=== PATIENT | female | born 1950 | race Caucasian/White ===

== ENCOUNTER 2017-02-06 07:48 | Day surgery (SDC) | payer MEDICARE, BC ==
[2017-02-06] VITALS (10 sets, daily range): BP systolic 95–147; BP diastolic 57–80; PULSE 49–77; TEMP 98.1
[~2017-02-06] VITALS: Ht 160.1 cm; Wt 97.2 kg
[2017-02-06 08:14] LABS: HEMATOCRIT 39.1 % (37.0-47.0); HEMOGLOBIN 12.7 g/dl (12.5-16.0); MEAN CELL VOLUME 88 fl (80.0-100.0); MEAN CORPUSCULAR HEMOGLOBIN 28 pg (27.0-31.0); MEAN CORPUSCULAR HGB CONC 33 g/dl (33.0-37.0); PLATELET COUNT 285 K/mm3 (130-400); RED BLOOD COUNT 4.47 M/mm3 (4.10-5.30); REDCELL DISTRIBUTION WIDTH-CV 13.3 % (11.5-14.5); WHITE BLOOD COUNT 6.2 K/mm3 (4.8-10.8)
[2017-02-06 08:18] LABS: PROTHROMBIN TIME 11.2 SECONDS (9.7-12.8)
[2017-02-06 08:23] LABS: CALCIUM 9.5 mg/dL (8.4-10.2); CREATININE, serum 0.95 mg/dL (0.52-1.25); POTASSIUM 3.7 mmol/L (3.4-5.0)
[2017-02-06] MEDS ORDERED: ASPIRIN 81M81 MG/TA2 PO (09:36)
[2017-02-06] MEDS ORDERED: DESYREL 50MG50 MG PO (09:37)
[2017-02-06] MEDS ORDERED: LIPITOR 10MG10 MG PO (09:37)
[2017-02-06] MEDS ORDERED: COZAAR 50MG50 MG/TAB PO (09:37)
[2017-02-06] MEDS ORDERED: CYMBALTA 60MG60 MG PO (09:38)
[2017-02-06] MEDS ORDERED: HYGROTON 2525 MG/TAB PO (09:39)
== END 2017-02-06 15:30 | disposition home or self-care (01) ==
LOC: COL.CAR 07:48
PROVIDERS: Internal Medicine Cardiovascular Disease
DX: R07.89 Other chest pain (principal); I25.10 Atherosclerotic heart disease of native coronary artery without angina pectoris; I34.0 Nonrheumatic mitral (valve) insufficiency; I10 Essential (primary) hypertension; E78.5 Hyperlipidemia, unspecified; K21.9 Gastro-esophageal reflux disease without esophagitis; M48.02 Spinal stenosis, cervical region; M19.90 Unspecified osteoarthritis, unspecified site; Z82.49 Family history of ischemic heart disease and other diseases of the circulatory system; F32.9 Major depressive disorder, single episode, unspecified; Z86.73 Personal history of transient ischemic attack (TIA), and cerebral infarction without residual deficits; Z90.49 Acquired absence of other specified parts of digestive tract; Z90.710 Acquired absence of both cervix and uterus
CPT/HCPCS: C1760; C1894; J2250; J3010